=== PATIENT | male | born 1980 | race Caucasian/White ===

== ENCOUNTER 2017-02-09 05:17 | Day surgery (SDC) | payer BC ==
[2017-02-05 08:09] LABS: BASOPHILS 0.7 %; BASOPHILS ABSOLUTE 0.04 10/3/uL (0.0-0.16); EOSINOPHILS 3.7 %; EOSINOPHILS ABSOLUTE 0.21 10/3/uL (0.0-0.53); HEMATOCRIT 45.1 % (40.0-51.0); HEMOGLOBIN 15.8 g/dL (13.6-17.8); IMMATURE GRANULOCYTES 0.2 %; IMMATURE GRANULOCYTES ABSOLUTE 0.01 10/3/uL (0.0-0.11); LYMPHOCYTES 34.2 %; LYMPHOCYTES ABSOLUTE 1.92 10/3/uL (0.67-4.30); MEAN CORPUSCULAR HEMOGLOB 31.6 pg (26.0-34.0); MEAN PLATELET VOLUME 11.2 fL (9.2-13.0); MONOCYTES 8.9 %; NEUTROPHILS 52.3 %; NEUTROPHILS ABSOLUTE 2.94 10/3/uL (2.02-8.40); PLATELET COUNT 179 10/3/uL (150-400); RBC DISTRIBUTION WIDTH 12.8 % (12.0-16.0); WHITE BLOOD CELLS 5.6 10/3/uL (4.5-10.5)
[2017-02-05 08:10] LABS: MANUAL DIFF NO %; MEAN CORPUSCULAR VOLUME 90.2 fL (80-100)
[2017-02-05 08:18] LABS: PARTIAL THROMBO TIME 28.8 SEC (22.5-37.2)
[2017-02-05 08:33] LABS: BUN (BLOOD UREA NITROGEN) 9 MG/DL (6-23); CALCIUM, SERUM 8.6 MG/DL (8.5-10.4); CHLORIDE, SERUM 105 MMOL/L (96-112); CO2 (CARBON DIOXIDE) 28 MMOL/L (24-34); CREATININE 0.85 MG/DL (0.70-1.30); GFR AFRICAN AMERICAN 130 ML/MIN (>=60); GFR NON AFRICAN AMERICAN 112 ML/MIN (>=60); GLUCOSE, SERUM 52 MG/DL (60-99); POTASSIUM, SERUM 4.6 MMOL/L (3.5-5.3); SODIUM, SERUM 142 MMOL/L (135-148)
--- NOTE | ~2017-02-09 | OP ---
Record Of Operation [facility] [address] [place]. 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 PROCEDURE PERFORMED: 1. Revision right selective neck dissection, including the right prevertebral space and upper mediastinal lymphatics. 2. Transposition of the right vagus nerve. INDICATIONS: 36-year-old male with recurrent 3.6 cm right prevertebral upper mediastinal neck node adjacent to the trachea and subclavian artery. Risks, benefits, and alternatives to excision were explained and he agreed. PROCEDURE IN DETAIL: The patient was identified in preoperative holding, taken back to the operating room, and placed supine on the operating room table. General anesthesia was established. A time-out was called, and the patient and procedure were confirmed. The anterior tap test was positive, as he was intubated with a nerve integrity monitoring system endotracheal tube. The anterior neck incision that had been previously used for surgery at [facility] for his neck dissection and thyroidectomy was used for this procedure as well and we used the lower aspect of the apron incision and this was infiltrated subcutaneously with 3 mL of 1% lidocaine with 1:100,000 epinephrine prior to the procedure. Using 2.5x loupe magnification and headlight illumination, the operation commenced. A 15 blade was used to make the skin incision. Subplatysmal flaps were elevated superiorly and inferiorly and the sternomastoid muscle was skeletonized along its anterior border. This led down to the omohyoid and the sternohyoid muscles, which were dissected on their lateral edges and retracted medially. We detached the sternal head of the sternocleidomastoid muscle providing access to the central compartment. We reflected the strap muscles medially. The carotid artery was dissected off the top of the tumor, which was just deep to the carotid pushing the carotid anteriorly along with the vagus nerve anteriorly. We then put a vessel loop around the common carotid artery and allowed to retract from medial and lateral retraction. We did a similar thing with the vagus nerve. We then identified the jugular vein superiorly and dissected down to where the tumor began to be adherent to the medial aspect of the internal jugular vein. We dissected the tumor medially toward the trachea, identified the recurrent laryngeal nerve in the tracheoesophageal groove and confirmed this with the nerve stimulating probe. We were able to peel the tumor off the recurrent laryngeal nerve from medial to lateral direction. We identified the deep neck space, deep cervical fascia where the tumor pill to be infiltrative or adherent to the fascia in this area. We got a deep margin here using Harmonic scalpel and a hemostat dissection. We then identified the subclavian artery inferiorly and dissected the inferior aspect of the tumor off the subclavian artery. We then identified the internal jugular vein Record Of Operation [address] [address] NAME: ROSALINO DURAN : 80 STATUS : [facility]#: [id number] AGE: 36 ADM/REG DATE : 02/09/17 MR#: [id number] REPORT SERV DATE: 02/09/17 DICTATED BY: BRYSON BO DATE: 02/09/17 REPORT STATUS : Draft TRANSCRIBED BY: EDGAR DATE: 02/09/17 superiorly and inferiorly and dissected the tumor off the internal jugular vein with a combination of blunt and sharp dissection. We did not have to sacrifice the internal jugular vein. The tumor was passed off this table to the back table and sent for frozen section. Touch prep showed papillary thyroid cancer. The wound was irrigated. Recurrent laryngeal nerve was stimulated with the probe and a snapshot photograph was taken and placed in the chart. There was no bleeding at the end of the case. The sternal head was reattached with three interrupted 3-0 Vicryl sutures to the sternal head of the sternal notch and the wound was then closed where a 7-Nigerien round fully perforated drain was placed and secured with a 3-0 Vicryl suture. The platysma was closed with layers using 3-0 Vicryl and a 5-0 running Monocryl. The patient was awakened and taken to recovery in stable condition. There were no complications. PH/MODL Bryson Bo M.D. / [id number] CC: Alyssa Melendez JENNY BRADSHAW
[~2017-02-09 05:17] MED LIST: LEVOTHYROXIN150 MCG PO
== END 2017-02-09 18:06 | disposition home or self-care (01) ==
LOC: SDC 05:17
PROVIDERS: Specialist
PROC: 00S Central Nervous System and Cranial Nerves, Reposition (ICD-10-PCS; principal; 2017-02-09 07:15)
DX: C73 Malignant neoplasm of thyroid gland (principal); E03.9 Hypothyroidism, unspecified; Z79.899 Other long term (current) drug therapy
CPT/HCPCS: 71020; 80048; 85025; 85730; 88305; 88309; 88333; A9270-GY; J0690; J2250; J2405; J2710; J3010